=== PATIENT | female | born 1975 | race Caucasian/White ===

== ENCOUNTER → 2017-01-15 | Outpatient (CLI) | payer OTHER ==
--- NOTE | 2017-01-15 15:06 | US ---
EXAMINATION TYPE: US venous doppler duplex LE LT DATE OF EXAM: 01/15/2017 1:19 PM COMPARISON: NONE CLINICAL HISTORY: LLE Calf Pain M25.572. SIDE PERFORMED: VESSELS IMAGED: External Iliac Vein (EIV) Common Femoral Vein Deep Femoral Vein Greater Saphenous Vein * Femoral Vein Popliteal Vein Small Saphenous Vein * Proximal Calf Veins (* superficial vessels) Left Leg: Appears negative for DVT IMPRESSION: No evidence for left lower extremity DVT at this time.
== END | disposition home or self-care (01) ==
LOC: RADUSWWP 12:23
PROVIDERS: ATTEND Orthopaedic Surgery
DX: I80.9 Phlebitis and thrombophlebitis of unspecified site (principal); M25.572 Pain in left ankle and joints of left foot; M76.62 Achilles tendinitis, left leg; M21.6X2 Other acquired deformities of left foot; Z48.89 Encounter for other specified surgical aftercare